=== PATIENT | female | born 1985 | race Two or more races ===

== ENCOUNTER 2018-07-10 07:04 | Emergency (ER) | payer OTHER ==
[~2018-07-10] VITALS: Ht 149.9 cm; Wt 77.4 kg
[2018-07-10] MEDS ORDERED: ONDANSETRON PF 4 MG/2 ML VIAL. IV ONE (07:30)
[2018-07-10] MEDS ORDERED: IV NORMAL SALINE 1,000ML 1,000 ML IV ONE (07:30)
--- NOTE | 2018-07-10 07:36 | PHYS DOC ---
Adult General Chief Complaint Chief Complaint: ABDOMINAL PAIN HPI HPI 33-year-old female presents with epigastric abdominal pain. Patient states that she woke up at midnight with epigastric pain that she describes as deep cramping. She has not had pain like this before, so she was concerned. No association with food. She has some nausea but has not had vomiting. She had 2 bowel movements yesterday and the second one was very loose. She denies fever or chills. She has some left flank tenderness that she noticed on arrival. She denies history of kidney stones. Review of Systems Review of Systems Constitutional: Denies fever or chills [] Eyes: Denies change in visual acuity, redness, or eye pain [] HENT: Denies nasal congestion or sore throat [] Respiratory: Denies cough or shortness of breath [] Cardiovascular: No additional information not addressed in HPI [] GI: Abdominal pain, nausea, diarrhea [] : Denies dysuria or hematuria [] Musculoskeletal: Denies back pain or joint pain [] Integument: Denies rash or skin lesions [] Neurologic: Denies headache, focal weakness or sensory changes [] Endocrine: Denies polyuria or polydipsia [] All other systems were reviewed and found to be within normal limits, except as documented in this note. Current Medications Current Medications Current Medications Medications (Trade) Dose Ordered Sig/Hector Start Time Stop Time Status Last Admin Dose Admin Ondansetron HCl (Zofran) 4 mg 1X ONCE 07/10/18 07:30 07/10/18 07:31 Sodium Chloride 1,000 ml @ 1,000 mls/hr 1X ONCE 07/10/18 07:30 07/10/18 08:29 Allergies Allergies Allergies Coded Allergies Type Severity Reaction Last Updated Verified No Known Drug Allergies 07/10/18 No Physical Exam Physical Exam Constitutional: Well developed, well nourished, no acute distress, non-toxic appearance. [] HENT: Normocephalic, atraumatic, bilateral external ears normal, oropharynx moist, no oral exudates, nose normal. [] Eyes: PERRLA, EOMI, conjunctiva normal, no discharge. [] Neck: Normal range of motion, no tenderness, supple, no stridor. [] Cardiovascular:Heart rate regular rhythm, no murmur [] Lungs & Thorax: Bilateral breath sounds clear to auscultation [] Abdomen: Epigastric tenderness, suprapubic tenderness, no rebound, no guarding.[ ] Skin: Warm, dry, no erythema, no rash. [] Back: No tenderness, no CVA tenderness. [] Extremities: No tenderness, no cyanosis, no clubbing, ROM intact, no edema. [] Neurologic: Alert and oriented X 3, normal motor function, normal sensory function, no focal deficits noted. [] Psychologic: Affect normal, judgement normal, mood normal. [] EKG EKG [] Radiology/Procedures Radiology/Procedures [] Impressions: Preliminary interpretation: Stool burden throughout the colon, scattered radiopaque material in the colon, a pocket of air in the colon at the splenic flexure. No air-fluid levels Course & Med Decision Making Course & Med Decision Making Pertinent Labs and Imaging studies reviewed. (See chart for details) The patient's labs are unremarkable. Her urinalysis is negative for infection. Her KUB shows moderate to severe stool burden in the colon. There is also a scattered radiopaque material which is likely full fragments in the colon. There is a pocket of gas trapped in the colon at the splenic flexure. It is likely the peristalsis pushing against this pressure was causing her pain. I advised the patient to use magnesium citrate to get her bowels moving and it cleaned out. She will go home and do this as directed. She is stable for discharge at this time. [] Dragon Disclaimer Dragon Disclaimer This electronic medical record was generated, in whole or in part, using a voice recognition dictation system. Departure Departure: Referrals: KELSY BARFIELD MD (PCP) EDWARD GIBSON DO Jul 10, 2018 07:36
[2018-07-10 07:47] LABS: BASO # 0.1 x10^3/uL (0.0-0.2); BASO % 1 % (0-3); EOS % 0 % (0-3); HEMATOCRIT 38.6 % (36.0-47.0); HEMOGLOBIN 12.6 g/dL (12.0-15.5); LYMPH # 1.7 x10^3/uL (1.0-4.8); LYMPH % 17 % (24-48); MEAN CORPUSCULAR HEMOGLOBIN 25 pg (25-35); MEAN CORPUSCULAR HGB CONC 33 g/dL (31-37); MEAN CORPUSCULAR VOLUME 77 fL (79-100); MONO # 0.4 x10^3/uL (0.0-1.1); MONO % 4 % (0-9); NEUT # 7.6 x10^3uL (1.8-7.7); NEUT % 78 % (31-73); PLATELET COUNT 321 x10^3/uL (140-400); RED BLOOD COUNT 5.01 x10^6/uL (3.50-5.40); RED CELL DISTRIBUTION WIDTH 14.8 % (11.5-14.5); WHITE BLOOD COUNT 9.8 x10^3/uL (4.0-11.0)
[2018-07-10 07:55] LABS: BACTERIA,URINE FEW /HPF (0-FEW); BILIRUBIN,URINE NEG (NEG); CLARITY,URINE HAZY; COLOR,URINE YELLOW; GLUCOSE,URINE NEG (NEG); NITRITE,URINE NEG (NEG); RBC,URINE 0 /HPF (0-2); SPERM,URINE PRESENT /HPF; SQUAMOUS EPITHELIAL CELL,UR MOD /LPF; UROBILINOGEN,URINE 0.2 mg/dL (0.2 mg/dL); WBC,URINE RARE /HPF (0-4)
[2018-07-10 07:57] LABS: ALBUMIN 3.3 g/dL (3.4-5.0); ALBUMIN/GLOBULIN RATIO 0.8 (1.0-1.7); CALCIUM 9.4 mg/dL (8.5-10.1); CREATININE 0.8 mg/dL (0.6-1.0); GFR 83.1; POTASSIUM 4.2 mmol/L (3.5-5.1); TOTAL BILIRUBIN 0.3 mg/dL (0.2-1.0); TOTAL PROTEIN 7.3 g/dL (6.4-8.2)
[2018-07-10] MEDS ORDERED: KETOROLAC 30 MG/ML VIAL. IV ONE (08:00)
[2018-07-10 08:42] VITALS: BP 101/47
--- NOTE | 2018-07-10 09:20 | RAD ---
EXAM: Abdomen, single view. HISTORY: Left lower quadrant pain. COMPARISON: None. FINDINGS: A frontal view of the abdomen is obtained. There is moderate stool within the colon and rectum. There is radiodense material within the fecal stream. No abnormally dilated loop of bowel seen. There is no transition point to suggest obstruction. IMPRESSION: 1. Moderate stool within the colon and rectum. Correlate for constipation. 2. Nonobstructive bowel gas pattern. Electronically signed by: Vee Hair MD (07/10/2018 9:16 AM) [place] [id number]
== END 2018-07-10 08:42 | disposition home or self-care (01) ==
LOC: ER 07:04
DX: K59.00 Constipation, unspecified (principal); R10.13 Epigastric pain
CPT/HCPCS: 36415; 74018; 80053; 81001; 81025; 83690; 85025; 96361; 96374; 96375; 99285; J1885; J2405; J7030

== ENCOUNTER 2018-11-05 19:00 | Emergency (ER) | payer OTHER ==
[~2018-11-05] VITALS: Ht 149.9 cm; Wt 81.6 kg
[2018-11-05] MEDS: IV NORMAL SALINE 1,000ML 1,000 ML IV ONE (19:27)
[2018-11-05] MEDS: KETOROLAC 30 MG/ML VIAL. IV ONE (19:29)
[2018-11-05] MEDS: ONDANSETRON PF 4 MG/2 ML VIAL. IV ONE (19:29)
[2018-11-05 19:44] LABS: BASO # 0.1 x10^3/uL (0.0-0.2); BASO % 1 % (0-3); EOS # 0.1 x10^3/uL (0.0-0.7); EOS % 1 % (0-3); HEMATOCRIT 40.7 % (36.0-47.0); HEMOGLOBIN 12.9 g/dL (12.0-15.5); LYMPH # 2.1 x10^3/uL (1.0-4.8); LYMPH % 19 % (24-48); MEAN CORPUSCULAR HEMOGLOBIN 25 pg (25-35); MEAN CORPUSCULAR HGB CONC 32 g/dL (31-37); MEAN CORPUSCULAR VOLUME 77 fL (79-100); MONO # 0.5 x10^3/uL (0.0-1.1); MONO % 5 % (0-9); NEUT # 8.1 x10^3uL (1.8-7.7); NEUT % 74 % (31-73); PLATELET COUNT 368 x10^3/uL (140-400); RED BLOOD COUNT 5.25 x10^6/uL (3.50-5.40); RED CELL DISTRIBUTION WIDTH 14.5 % (11.5-14.5); WHITE BLOOD COUNT 10.9 x10^3/uL (4.0-11.0)
[2018-11-05 19:51] LABS: ALBUMIN 3.7 g/dL (3.4-5.0); ALBUMIN/GLOBULIN RATIO 0.9 (1.0-1.7); CALCIUM 8.9 mg/dL (8.5-10.1); CREATININE 0.9 mg/dL (0.6-1.0); GFR 72.6; POTASSIUM 3.4 mmol/L (3.5-5.1); TOTAL BILIRUBIN 0.3 mg/dL (0.2-1.0)
--- NOTE | 2018-11-05 19:56 | PHYS DOC ---
Past History Past Medical History: No Pertinent History Past Surgical History: Alcohol Use: None Drug Use: None Adult General Chief Complaint Chief Complaint: ABDOMINAL PAIN HPI HPI 33-year-old female presents with epigastric abdominal pain that started 40 minutes prior to arrival. The patient was having dinner which included rice, beans, and chicken. A little while after eating, she began to have this sharp pain in the epigastric area. At its worse it was 10 out of 10. The patient has not had pain like this before. She does get intermittent heartburn but Zantac usually resolves it. She tried to Zantac without relief. She denies vomiting but has had nausea. She has noticed a pattern of abdominal pain on occasion after eating but it is much less severe and she believed it was GERD. She denies fever or chills. She does not drink alcohol in the bases Review of Systems Review of Systems Constitutional: Denies fever or chills [] Eyes: Denies change in visual acuity, redness, or eye pain [] HENT: Denies nasal congestion or sore throat [] Respiratory: Denies cough or shortness of breath [] Cardiovascular: No additional information not addressed in HPI [] GI: Abdominal pain, nausea. Denies vomiting, bloody stools or diarrhea [] : Denies dysuria or hematuria [] Musculoskeletal: Denies back pain or joint pain [] Integument: Denies rash or skin lesions [] Neurologic: Denies headache, focal weakness or sensory changes [] Endocrine: Denies polyuria or polydipsia [] All other systems were reviewed and found to be within normal limits, except as documented in this note. Current Medications Current Medications Current Medications Medications (Trade) Dose Ordered Sig/Hector Start Time Stop Time Status Last Admin Dose Admin Ketorolac Tromethamine (Toradol 30mg Vial) 30 mg 1X ONCE 11/05/18 19:30 11/05/18 19:31 DC 11/05/18 19:29 30 MG Ondansetron HCl (Zofran) 4 mg 1X ONCE 11/05/18 19:30 11/05/18 19:31 DC 11/05/18 19:29 4 MG Sodium Chloride 1,000 ml @ 1,000 mls/hr 1X ONCE 11/05/18 19:30 11/05/18 20:29 11/05/18 19:27 1,000 MLS/HR Allergies Allergies Allergies Coded Allergies Type Severity Reaction Last Updated Verified No Known Drug Allergies 07/10/18 No Physical Exam Physical Exam Constitutional: Well developed, well nourished, no acute distress, non-toxic appearance. [] HENT: Normocephalic, atraumatic, bilateral external ears normal, oropharynx moist, no oral exudates, nose normal. [] Eyes: PERRLA, EOMI, conjunctiva normal, no discharge. [] Neck: Normal range of motion, no tenderness, supple, no stridor. [] Cardiovascular:Heart rate regular rhythm, no murmur [] Lungs & Thorax: Bilateral breath sounds clear to auscultation [] Abdomen: epigastric abdominal pain with palpation. [] Skin: Warm, dry, no erythema, no rash. [] Back: No tenderness, no CVA tenderness. [] Extremities: No tenderness, no cyanosis, no clubbing, ROM intact, no edema. [] Neurologic: Alert and oriented X 3, normal motor function, normal sensory function, no focal deficits noted. [] Psychologic: Affect normal, judgement normal, mood normal. [] Current Patient Data Vital Signs Vital Signs Date Time Temp Pulse Resp B/P (MAP) Pulse Ox O2 Delivery O2 Flow Rate FiO2 11/05/18 19:08 97.8 73 20 100 Room Air Lab Results Laboratory Tests Test 11/05/18 19:22 White Blood Count 10.9 x10^3/uL (4.0-11.0) Red Blood Count 5.25 x10^6/uL (3.50-5.40) Hemoglobin 12.9 g/dL (12.0-15.5) Hematocrit 40.7 % (36.0-47.0) Mean Corpuscular Volume 77 fL (79-100) L Mean Corpuscular Hemoglobin 25 pg (25-35) Mean Corpuscular Hemoglobin Concent 32 g/dL (31-37) Red Cell Distribution Width 14.5 % (11.5-14.5) Platelet Count 368 x10^3/uL (140-400) Neutrophils (%) (Auto) 74 % (31-73) H Lymphocytes (%) (Auto) 19 % (24-48) L Monocytes (%) (Auto) 5 % (0-9) Eosinophils (%) (Auto) 1 % (0-3) Basophils (%) (Auto) 1 % (0-3) Neutrophils # (Auto) 8.1 x10^3uL (1.8-7.7) H Lymphocytes # (Auto) 2.1 x10^3/uL (1.0-4.8) Monocytes # (Auto) 0.5 x10^3/uL (0.0-1.1) Eosinophils # (Auto) 0.1 x10^3/uL (0.0-0.7) Basophils # (Auto) 0.1 x10^3/uL (0.0-0.2) Sodium Level 140 mmol/L (136-145) Potassium Level 3.4 mmol/L (3.5-5.1) L Chloride Level 100 mmol/L (98-107) Carbon Dioxide Level 30 mmol/L (21-32) Anion Gap 10 (6-14) Blood Urea Nitrogen 14 mg/dL (7-20) Creatinine 0.9 mg/dL (0.6-1.0) Estimated GFR (Cockcroft-Gault) 72.6 BUN/Creatinine Ratio 16 (6-20) Glucose Level 108 mg/dL (70-99) H Calcium Level 8.9 mg/dL (8.5-10.1) Total Bilirubin 0.3 mg/dL (0.2-1.0) Aspartate Amino Transferase (AST) 19 U/L (15-37) Alanine Aminotransferase (ALT) 33 U/L (14-59) Alkaline Phosphatase 75 U/L (46-116) Total Protein 8.0 g/dL (6.4-8.2) Albumin 3.7 g/dL (3.4-5.0) Albumin/Globulin Ratio 0.9 (1.0-1.7) L Lipase 261 U/L (73-393) EKG EKG [] Radiology/Procedures Radiology/Procedures [] Course & Med Decision Making Course & Med Decision Making Pertinent Labs and Imaging studies reviewed. (See chart for details) The patient's labs are unremarkable. Her urinalysis is unremarkable. Her symptoms are suspicious for gallbladder disease. This is not an acute situation however. I have advised that she keep a food diary when this pain happens to look for patterns. If she continues to have difficulty, she will work with her primary care physician for gallbladder workup. She is feeling better at this time. She is stable for discharge. [] Dragon Disclaimer Dragon Disclaimer This electronic medical record was generated, in whole or in part, using a voice recognition dictation system. Departure Departure: Impression: Primary Impression: Epigastric abdominal pain Disposition: HOME, SELF-CARE Condition: STABLE Referrals: KELSY BARFIELD MD (PCP) Patient Instructions: Abdominal Pain, Women EDWARD GIBSON DO Nov 05, 2018 19:56
[2018-11-05 20:17] LABS: BILIRUBIN,URINE NEG (NEG); CLARITY,URINE HAZY; COLOR,URINE YELLOW; GLUCOSE,URINE NEG (NEG)
[2018-11-05 20:18] LABS: BACTERIA,URINE FEW /HPF (0-FEW); NITRITE,URINE NEG (NEG); SQUAMOUS EPITHELIAL CELL,UR MOD /LPF; UROBILINOGEN,URINE 1 mg/dL (0.2 mg/dL); WBC,URINE OCC /HPF (0-4)
[2018-11-05 20:30] VITALS: BP 116/50
== END 2018-11-05 20:46 | disposition home or self-care (01) ==
LOC: ER 19:00
DX: R10.13 Epigastric pain (principal); Z98.890 Other specified postprocedural states
CPT/HCPCS: 36415; 80053; 81001; 83690; 85025; 96374; 96375; 99283; J1885; J2405; J7030

== ENCOUNTER 2019-02-02 04:53 | Emergency (ER) | payer BC, OTHER ==
[~2019-02-02] VITALS: Ht 149.9 cm; Wt 81.2 kg
--- NOTE | 2019-02-02 04:56 | ED.ADGEN ---
Past History Past Medical History: No Pertinent History (DON BYERS MD) Past Surgical History: (DON BYERS MD) Alcohol Use: None Drug Use: None (DON BYERS MD) Adult General Chief Complaint Chief Complaint ".. I got this really bad abdomen pain.. here in pit of chest.. my stomach.. it about 06/19.. it woke me up from sleep.. it is nataliya like the pain I had back in October... " (DON BYERS MD) [facility] HPI Patient is a 28 year old female who presents with above hx and complaints abd. pain 06/19. Pain is localized to the epigastric and right upper quadrant. Patient doesn't currently have some dull discomfort in right shoulder blade area. Pain is similar to pain she had in October of this past year. Patient has had this pain periodically after high-fat meals. Patient did have massive dictated and Q steak at [employer] approximately 21:30 last night. Patient denies any history of tarry stools. Patient has been told in the past that she possibly has biliary colic and was too get out patient follow-up. Patient has not followed up with her primary Carole Barfield . She denies any trauma. Patient denies any travel. Patient denies any immunosuppression. Patient denies any intake of questionable foods. Patient is on city water. No history of specific ill contact. She has had previous abdomen surgery a . She does not smoke. Patient denies illicit drug use. Patient denies any vaginal discharge. (DON BYERS MD) Review of Systems Review of Systems Constitutional: Denies fever or chills [] Eyes: Denies change in visual acuity, redness, or eye pain [] HENT: Denies nasal congestion or sore throat [] Respiratory: Denies cough or shortness of breath [] Cardiovascular: No additional information not addressed in HPI [] GI: Complains of a right upper quadrant and epigastric abdominal pain, nausea,. Denies vomiting, bloody stools or diarrhea [] : Denies dysuria or hematuria [] Musculoskeletal: Denies back pain or joint pain [] Integument: Denies rash or skin lesions [] Neurologic: Denies headache, focal weakness or sensory changes [] Endocrine: Denies polyuria or polydipsia [] All other systems were reviewed and found to be within normal limits, except as documented in this note. (DON BYERS MD) Family History Family History Gallstones (DON BYERS MD) Current Medications Current Medications Current Medications Medications (Trade) Dose Ordered Sig/Hector Start Time Stop Time Status Last Admin Dose Admin Acetaminophen (Tylenol) 1,000 mg 1X ONCE 02/02/19 05:30 02/02/19 05:31 DC 02/02/19 05:19 1,000 MG Famotidine (Pepcid Vial) 20 mg 1X ONCE 02/02/19 05:30 02/02/19 05:31 DC 02/02/19 05:16 20 MG Iohexol (Omnipaque 240 Mg/ml) 30 ml 1X ONCE 02/02/19 08:00 02/02/19 08:01 DC 02/02/19 07:56 30 ML Iohexol (Omnipaque 300 Mg/ml) 75 ml 1X ONCE 02/02/19 08:00 02/02/19 08:01 DC 02/02/19 07:56 75 ML Lactated Ringer's 1,000 ml @ 1,000 mls/hr Q1H 02/02/19 05:30 02/02/19 07:51 DC 02/02/19 05:16 1,000 MLS/HR Magnesium Hydroxide (Milk Of Magnesia) 2,400 mg 1X ONCE 02/02/19 05:30 02/02/19 05:31 DC 02/02/19 05:18 2,400 MG Ondansetron HCl (Zofran) 8 mg 1X ONCE 02/02/19 05:30 02/02/19 05:31 DC 02/02/19 05:17 8 MG (SUBHASH BONE MD) Current Medications See nursing for home medications (DON BYERS MD) Allergies Allergies Allergies Coded Allergies Type Severity Reaction Last Updated Verified No Known Drug Allergies 07/10/18 No (SUBHASH BONE MD) Physical Exam Physical Exam Constitutional: in acute distress, non-toxic appearance. [] HENT: Normocephalic, atraumatic, bilateral external ears normal, oropharynx moist, no oral exudates, nose normal. [] Eyes: PERRLA, EOMI, conjunctiva normal, no discharge. [] Neck: Normal range of motion, no tenderness, supple, no stridor. [] Cardiovascular:Heart rate regular rhythm, no murmur [] Lungs & Thorax: Bilateral breath sounds equal apex auscultation [] Abdomen: Bowel sounds normal, soft, right upper quadrant and epigastric tenderness, rebound to Rt. upper quadrant, no masses, no pulsatile masses. [] Old scar. Patient declines rectal or pelvic exam at this time. Skin: Warm, dry, no erythema, no rash. [] Back: No tenderness, no CVA tenderness. [] Extremities: No tenderness, no cyanosis, no clubbing, ROM intact, no edema. [] No psoas sign. Neurologic: Alert and oriented X 3, normal motor function, normal sensory function, no focal deficits noted. [] Psychologic: Affect anxious, judgement normal, mood normal. [] (DON BYERS MD) Current Patient Data Vital Signs Vital Signs Date Time Temp Pulse Resp B/P (MAP) Pulse Ox O2 Delivery O2 Flow Rate FiO2 02/02/19 07:10 70 16 102/64 (77) 97 Room Air 02/02/19 04:53 97.7 (SUBHASH BONE MD) Lab Results Laboratory Tests Test 02/02/19 05:00 02/02/19 05:07 02/02/19 05:15 02/02/19 05:39 Urine Collection Type Unknown Urine Color Yellow Urine Clarity Clear Urine pH 6.5 Urine Specific Clarissa >=1.030 Urine Protein Neg (NEG-TRACE) Urine Glucose (UA) Neg mg/dL (NEG) Urine Ketones (Stick) Neg mg/dL (NEG) Urine Blood Small (NEG) Urine Nitrite Neg (NEG) Urine Bilirubin Neg (NEG) Urine Urobilinogen Dipstick 1 mg/dL (0.2 mg/dL) Urine Leukocyte Esterase Neg (NEG) Urine RBC Rare /HPF (0-2) Urine WBC 1-4 /HPF (0-4) Urine Squamous Epithelial Cells Mod /LPF Urine Bacteria Mod /HPF (0-FEW) Urine Mucus Marked /LPF Urine Opiates Screen Neg (NEG) Urine Methadone Screen Neg (NEG) Urine Barbiturates Neg (NEG) Urine Phencyclidine Screen Neg (NEG) Urine Amphetamine/Methamphetamine Neg (NEG) Urine Benzodiazepines Screen Neg (NEG) Urine Cocaine Screen Neg (NEG) Urine Cannabinoids Screen Neg (NEG) Urine Ethyl Alcohol Neg (NEG) White Blood Count 10.6 x10^3/uL (4.0-11.0) Red Blood Count 5.07 x10^6/uL (3.50-5.40) Hemoglobin 12.7 g/dL (12.0-15.5) Hematocrit 39.2 % (36.0-47.0) Mean Corpuscular Volume 77 fL (79-100) L Mean Corpuscular Hemoglobin 25 pg (25-35) Mean Corpuscular Hemoglobin Concent 33 g/dL (31-37) Red Cell Distribution Width 14.5 % (11.5-14.5) Platelet Count 320 x10^3/uL (140-400) Neutrophils (%) (Auto) 76 % (31-73) H Lymphocytes (%) (Auto) 17 % (24-48) L Monocytes (%) (Auto) 6 % (0-9) Eosinophils (%) (Auto) 1 % (0-3) Basophils (%) (Auto) 0 % (0-3) Neutrophils # (Auto) 8.0 x10^3uL (1.8-7.7) H Lymphocytes # (Auto) 1.8 x10^3/uL (1.0-4.8) Monocytes # (Auto) 0.6 x10^3/uL (0.0-1.1) Eosinophils # (Auto) 0.1 x10^3/uL (0.0-0.7) Basophils # (Auto) 0.0 x10^3/uL (0.0-0.2) Sodium Level 141 mmol/L (136-145) Potassium Level 3.6 mmol/L (3.5-5.1) Chloride Level 103 mmol/L (98-107) Carbon Dioxide Level 27 mmol/L (21-32) Anion Gap 11 (6-14) Blood Urea Nitrogen 13 mg/dL (7-20) Creatinine 0.9 mg/dL (0.6-1.0) Estimated GFR (Cockcroft-Gault) 72.6 Glucose Level 121 mg/dL (70-99) H Calcium Level 8.9 mg/dL (8.5-10.1) Total Bilirubin 0.3 mg/dL (0.2-1.0) Direct Bilirubin 0.1 mg/dL (0.0-0.2) Aspartate Amino Transferase (AST) 28 U/L (15-37) Alanine Aminotransferase (ALT) 42 U/L (14-59) Alkaline Phosphatase 69 U/L (46-116) Creatine Kinase 116 U/L (26-192) Troponin I Quantitative < 0.017 ng/mL (0-0.055) Total Protein 7.4 g/dL (6.4-8.2) Albumin 3.6 g/dL (3.4-5.0) Amylase Level 45 U/L (25-115) Lipase 154 U/L (73-393) POC Urine HCG, Qualitative hcg negative (Negative) Prothrombin Time 12.4 SEC (9.4-11.4) H Prothrombin Time INR 1.3 (0.9-1.1) H PTT 26 SEC (23-33) (SUBHASH BONE MD) Lab Results Laboratory Tests Test 02/02/19 05:00 02/02/19 05:07 02/02/19 05:15 02/02/19 05:39 Urine Collection Type Unknown Urine Color Yellow Urine Clarity Clear Urine pH 6.5 Urine Specific Clarissa >=1.030 Urine Protein Neg (NEG-TRACE) Urine Glucose (UA) Neg mg/dL (NEG) Urine Ketones (Stick) Neg mg/dL (NEG) Urine Blood Small (NEG) Urine Nitrite Neg (NEG) Urine Bilirubin Neg (NEG) Urine Urobilinogen Dipstick 1 mg/dL (0.2 mg/dL) Urine Leukocyte Esterase Neg (NEG) Urine RBC Rare /HPF (0-2) Urine WBC 1-4 /HPF (0-4) Urine Squamous Epithelial Cells Mod /LPF Urine Bacteria Mod /HPF (0-FEW) Urine Mucus Marked /LPF Urine Opiates Screen Neg (NEG) Urine Methadone Screen Neg (NEG) Urine Barbiturates Neg (NEG) Urine Phencyclidine Screen Neg (NEG) Urine Amphetamine/Methamphetamine Neg (NEG) Urine Benzodiazepines Screen Neg (NEG) Urine Cocaine Screen Neg (NEG) Urine Cannabinoids Screen Neg (NEG) Urine Ethyl Alcohol Neg (NEG) White Blood Count 10.6 x10^3/uL (4.0-11.0) Red Blood Count 5.07 x10^6/uL (3.50-5.40) Hemoglobin 12.7 g/dL (12.0-15.5) Hematocrit 39.2 % (36.0-47.0) Mean Corpuscular Volume 77 fL (79-100) L Mean Corpuscular Hemoglobin 25 pg (25-35) Mean Corpuscular Hemoglobin Concent 33 g/dL (31-37) Red Cell Distribution Width 14.5 % (11.5-14.5) Platelet Count 320 x10^3/uL (140-400) Neutrophils (%) (Auto) 76 % (31-73) H Lymphocytes (%) (Auto) 17 % (24-48) L Monocytes (%) (Auto) 6 % (0-9) Eosinophils (%) (Auto) 1 % (0-3) Basophils (%) (Auto) 0 % (0-3) Neutrophils # (Auto) 8.0 x10^3uL (1.8-7.7) H Lymphocytes # (Auto) 1.8 x10^3/uL (1.0-4.8) Monocytes # (Auto) 0.6 x10^3/uL (0.0-1.1) Eosinophils # (Auto) 0.1 x10^3/uL (0.0-0.7) Basophils # (Auto) 0.0 x10^3/uL (0.0-0.2) Sodium Level 141 mmol/L (136-145) Potassium Level 3.6 mmol/L (3.5-5.1) Chloride Level 103 mmol/L (98-107) Carbon Dioxide Level 27 mmol/L (21-32) Anion Gap 11 (6-14) Blood Urea Nitrogen 13 mg/dL (7-20) Creatinine 0.9 mg/dL (0.6-1.0) Estimated GFR (Cockcroft-Gault) 72.6 Glucose Level 121 mg/dL (70-99) H Calcium Level 8.9 mg/dL (8.5-10.1) Total Bilirubin 0.3 mg/dL (0.2-1.0) Direct Bilirubin 0.1 mg/dL (0.0-0.2) Aspartate Amino Transferase (AST) 28 U/L (15-37) Alanine Aminotransferase (ALT) 42 U/L (14-59) Alkaline Phosphatase 69 U/L (46-116) Creatine Kinase 116 U/L (26-192) Troponin I Quantitative < 0.017 ng/mL (0-0.055) Total Protein 7.4 g/dL (6.4-8.2) Albumin 3.6 g/dL (3.4-5.0) Triglycerides Level 81 mg/dL (0-150) Cholesterol Level 137 mg/dL (0-200) LDL Cholesterol, Calculated 80 mg/dL (0-100) VLDL Cholesterol, Calculated 16 mg/dL (0-40) Non-HDL Cholesterol Calculated 96 mg/dL (0-129) HDL Cholesterol 41 mg/dL (40-60) Cholesterol/HDL Ratio 3.0 Amylase Level 45 U/L (25-115) Lipase 154 U/L (73-393) POC Urine HCG, Qualitative hcg negative (Negative) Prothrombin Time 12.4 SEC (9.4-11.4) H Prothrombin Time INR 1.3 (0.9-1.1) H PTT 26 SEC (23-33) (DON BYERS MD) EKG EKG [] (DON BYERS MD) EKG Ordered and reviewed by Dr. Byers at [address] Bone at 0645: Heart rate 70, sinus rhythm, leftward axis, no acute ST/T-wave abnormalities present (SUBHASH BONE MD) Radiology/Procedures Radiology/Procedures [] (DON BYERS MD) Radiology/[place] [address] IMAGING REPORT Signed PATIENT: RODRIGO ASTORGA ACCOUNT: [id number] : 1985 LOCATION: ER AGE: 33 SEX: F EXAM STATUS: REG ER ORD. PHYSICIAN: DON BYERS MD REASON: abdomen pain PROCEDURE: CT ABD PELV W/ORAL&IV CONTRAST Examination: CT ABD PELV W/ORAL IV CONTRAST History: EPIGASTRIC ABDOMINAL PAIN WITH NAUSEA. ORAL AND 75MLS OMNI 300 IV CONTRAST Comparison/Correlation: None Findings: Axial images of the abdomen and pelvis were obtained following IV contrast. Sagittal and coronal reformatted images were provided. Oral contrast was administered. Visualized lung bases are clear. Liver, spleen, pancreas, adrenal glands, and kidneys are normal. A calculus within the gallbladder measuring up to 2 cm diameter noted. Smaller calculus at the gallbladder neck measuring 0.6 cm diameter also appears to be present. No biliary dilatation. No surrounding inflammatory findings. Appendix is normal. No extraluminal gas. No obstruction. Intrauterine device is present. Small left adnexal follicle is physiologic in appearance. No ascites or pelvic free fluid. No enlarged abdominal or pelvic lymph nodes. Small umbilical hernia containing omental fat. Bone island involving L3 is present at the vertebral body. Bilateral sacroiliac joint sclerosis primarily involving the iliac bones noted. Impression: Cholelithiasis. No acute inflammatory findings or biliary dilatation. Bilateral sacroiliitis. PQRS Compliance Statement: One or more of the following individualized dose reduction techniques were utilized for this examination: 1. Automated exposure control 2. Adjustment of the mA and/or kV according to patient size 3. Use of iterative reconstruction technique Electronically signed by: Ivett Hurtado MD (02/02/2019 7:51 AM) [facility] DICTATED AND SIGNED BY: IVETT HURTADO MD DATE: 02/02/19 0751 CC: DON BYERS MD; KELSY BARFIELD MD ~ (SUBHASH BONE MD) Course & Med Decision Making Course & Med Decision Making Pertinent Labs and Imaging studies reviewed. (See chart for details) [] (DON BYERS MD) Course & Med Decision Making Addendum by Dr. Subhash Bone at 0825: I took over care of patient at [address] Byers. I followed up at the patient's lab work and imaging studies. Imaging studies reveal evidence of cholelithiasis without evidence of cholecystitis. Reevaluation of the patient shows that she is pain-free at this time. Symptoms appear consistent with biliary colic. Informed patient of cause for symptoms. Recommended that the patient decrease fat intake in diet and patient will be referred to follow-up with Dr. Downing of Gen. surgery in the next 5-7 days for reevaluation and likely scheduling of outpatient cholecystectomy. Recommended that patient return to the emergency department for any worsening symptoms. Prescribed Odon to take as needed for biliary colic. Patient voiced understanding and in agreement with treatment plan. (SUBHASH BONE MD) Final Impression Final Impression 1. Abdomen Pain[] 2. Biliary colic (DON BYERS MD) Final Impression Biliary colic (SUBHASH BONE MD) Dragon Disclaimer Dragon Disclaimer This electronic medical record was generated, in whole or in part, using a voice recognition dictation system. (DON BYERS MD) Discharge Summary Visit Information Final Diagnosis Problems Medical Problems: (1) Biliary colic Status: Acute (DON BYERS MD) Brief Hospital Course Allergies Allergies Coded Allergies Type Severity Reaction Last Updated Verified No Known Drug Allergies 07/10/18 No (DON BYERS MD) Vital Signs Vital Signs Date Time Temp Pulse Resp B/P (MAP) Pulse Ox O2 Delivery O2 Flow Rate FiO2 02/02/19 08:20 68 16 104/56 (72) 98 Room Air 02/02/19 04:53 97.7 (DON BYERS MD) Lab Results Laboratory Tests Test 02/02/19 05:00 02/02/19 05:07 02/02/19 05:15 02/02/19 05:39 Urine Collection Type Unknown Urine Color Yellow Urine Clarity Clear Urine pH 6.5 Urine Specific Clarissa >=1.030 Urine Protein Neg (NEG-TRACE) Urine Glucose (UA) Neg mg/dL (NEG) Urine Ketones (Stick) Neg mg/dL (NEG) Urine Blood Small (NEG) Urine Nitrite Neg (NEG) Urine Bilirubin Neg (NEG) Urine Urobilinogen Dipstick 1 mg/dL (0.2 mg/dL) Urine Leukocyte Esterase Neg (NEG) Urine RBC Rare /HPF (0-2) Urine WBC 1-4 /HPF (0-4) Urine Squamous Epithelial Cells Mod /LPF Urine Bacteria Mod /HPF (0-FEW) Urine Mucus Marked /LPF Urine Opiates Screen Neg (NEG) Urine Methadone Screen Neg (NEG) Urine Barbiturates Neg (NEG) Urine Phencyclidine Screen Neg (NEG) Urine Amphetamine/Methamphetamine Neg (NEG) Urine Benzodiazepines Screen Neg (NEG) Urine Cocaine Screen Neg (NEG) Urine Cannabinoids Screen Neg (NEG) Urine Ethyl Alcohol Neg (NEG) White Blood Count 10.6 x10^3/uL (4.0-11.0) Red Blood Count 5.07 x10^6/uL (3.50-5.40) Hemoglobin 12.7 g/dL (12.0-15.5) Hematocrit 39.2 % (36.0-47.0) Mean Corpuscular Volume 77 fL (79-100) Mean Corpuscular Hemoglobin 25 pg (25-35) Mean Corpuscular Hemoglobin Concent 33 g/dL (31-37) Red Cell Distribution Width 14.5 % (11.5-14.5) Platelet Count 320 x10^3/uL (140-400) Neutrophils (%) (Auto) 76 % (31-73) Lymphocytes (%) (Auto) 17 % (24-48) Monocytes (%) (Auto) 6 % (0-9) Eosinophils (%) (Auto) 1 % (0-3) Basophils (%) (Auto) 0 % (0-3) Neutrophils # (Auto) 8.0 x10^3uL (1.8-7.7) Lymphocytes # (Auto) 1.8 x10^3/uL (1.0-4.8) Monocytes # (Auto) 0.6 x10^3/uL (0.0-1.1) Eosinophils # (Auto) 0.1 x10^3/uL (0.0-0.7) Basophils # (Auto) 0.0 x10^3/uL (0.0-0.2) Sodium Level 141 mmol/L (136-145) Potassium Level 3.6 mmol/L (3.5-5.1) Chloride Level 103 mmol/L (98-107) Carbon Dioxide Level 27 mmol/L (21-32) Anion Gap 11 (6-14) Blood Urea Nitrogen 13 mg/dL (7-20) Creatinine 0.9 mg/dL (0.6-1.0) Estimated GFR (Cockcroft-Gault) 72.6 Glucose Level 121 mg/dL (70-99) Calcium Level 8.9 mg/dL (8.5-10.1) Total Bilirubin 0.3 mg/dL (0.2-1.0) Direct Bilirubin 0.1 mg/dL (0.0-0.2) Aspartate Amino Transf (AST/SGOT) 28 U/L (15-37) Alanine Aminotransferase (ALT/SGPT) 42 U/L (14-59) Alkaline Phosphatase 69 U/L (46-116) Creatine Kinase 116 U/L (26-192) Troponin I Quantitative < 0.017 ng/mL (0-0.055) Total Protein 7.4 g/dL (6.4-8.2) Albumin 3.6 g/dL (3.4-5.0) Triglycerides Level 81 mg/dL (0-150) Cholesterol Level 137 mg/dL (0-200) LDL Cholesterol, Calculated 80 mg/dL (0-100) VLDL Cholesterol, Calculated 16 mg/dL (0-40) Non-HDL Cholesterol Calculated 96 mg/dL (0-129) HDL Cholesterol 41 mg/dL (40-60) Cholesterol/HDL Ratio 3.0 Amylase Level 45 U/L (25-115) Lipase 154 U/L (73-393) Bedside Urine HCG, Qualitative hcg negative (Negative) Prothrombin Time 12.4 SEC (9.4-11.4) Prothromb Time International Ratio 1.3 (0.9-1.1) Activated Partial Thromboplast Time 26 SEC (23-33) (DON BYERS MD) Brief Hospital Course 5Ms. Brenna is a 33 old female who presented with abd. pain and suspect biliary colic. Follow up with Dr. Downing group. (DON BYERS MD) Discharge Information Condition at Discharge: Improved, Stable Disposition/Orders: D/C to Home (DON BYERS MD) Dischare Medications Current Medications Lactated Ringer's 1,000 ml @ 1,000 mls/hr Q1H IV Last administered on 02/02/19at 05:16; Admin Dose 1,000 MLS/HR; Start 02/02/19 at 05:30; Stop 02/02/19 at 07:51; Status DC Ondansetron HCl (Zofran) 8 mg 1X ONCE IV Last administered on 02/02/19at 05:17; Admin Dose 8 MG; Start 02/02/19 at 05:30; Stop 02/02/19 at 05:31; Status DC Famotidine (Pepcid Vial) 20 mg 1X ONCE IVP Last administered on 02/02/19at 05:16; Admin Dose 20 MG; Start 02/02/19 at 05:30; Stop 02/02/19 at 05:31; Status DC Magnesium Hydroxide (Milk Of Magnesia) 2,400 mg 1X ONCE PO Last administered on 02/02/19at 05:18; Admin Dose 2,400 MG; Start 02/02/19 at 05:30; Stop 02/02/19 at 05:31; Status DC Acetaminophen (Tylenol) 1,000 mg 1X ONCE PO Last administered on 02/02/19at 05:19; Admin Dose 1,000 MG; Start 02/02/19 at 05:30; Stop 02/02/19 at 05:31; Status DC Iohexol (Omnipaque 300 Mg/ml) 75 ml 1X ONCE IV Last administered on 02/02/19at 07:56; Admin Dose 75 ML; Start 02/02/19 at 08:00; Stop 02/02/19 at 08:01; Status DC Iohexol (Omnipaque 240 Mg/ml) 30 ml 1X ONCE PO Last administered on 02/02/19at 07:56; Admin Dose 30 ML; Start 02/02/19 at 08:00; Stop 02/02/19 at 08:01; Status DC Active Scripts Active Odon 5-325 Tablet (Hydrocodone Bit/Acetaminophen) 1 Each Tablet 1-2 Tab PO Q4- 6HRS PRN (DON BYERS MD) Dragon Disclaimer This chart was dictated in whole or in part using Voice Recognition software in a busy, high-work load, and often noisy Emergency Department environment. It may contain unintended and wholly unrecognized errors or omissions. (DON BYERS MD) DON BYERS MD Feb 02, 2019 04:55 SUBHASH BONE MD Feb 02, 2019 08:28
[2019-02-02] MEDS ORDERED: FAMOTIDINE 20 MG/2 ML VIAL IVP ONE (05:30)
[2019-02-02] MEDS ORDERED: ONDANSETRON PF 4 MG/2 ML VIAL. IV ONE (05:30)
[2019-02-02] MEDS ORDERED: MAGNESIUM HYDROXIDE 2,400 MG/30 ML ORAL.SUSP. PO ONE (05:30)
[2019-02-02] MEDS ORDERED: IV RINGERS SOLUTION,LACTATED 1,000 ML IV SCH (05:30)
[2019-02-02] MEDS ORDERED: ACETAMINOPHEN 500 MG TABLET PO ONE (05:30)
[2019-02-02 05:43] LABS: BASO % 0 % (0-3); EOS # 0.1 x10^3/uL (0.0-0.7); EOS % 1 % (0-3); HEMATOCRIT 39.2 % (36.0-47.0); HEMOGLOBIN 12.7 g/dL (12.0-15.5); LYMPH # 1.8 x10^3/uL (1.0-4.8); LYMPH % 17 % (24-48); MEAN CORPUSCULAR HEMOGLOBIN 25 pg (25-35); MEAN CORPUSCULAR HGB CONC 33 g/dL (31-37); MEAN CORPUSCULAR VOLUME 77 fL (79-100); MONO # 0.6 x10^3/uL (0.0-1.1); MONO % 6 % (0-9); NEUT % 76 % (31-73); PLATELET COUNT 320 x10^3/uL (140-400); RED BLOOD COUNT 5.07 x10^6/uL (3.50-5.40); RED CELL DISTRIBUTION WIDTH 14.5 % (11.5-14.5); WHITE BLOOD COUNT 10.6 x10^3/uL (4.0-11.0)
[2019-02-02 06:05] LABS: ALBUMIN 3.6 g/dL (3.4-5.0); CALCIUM 8.9 mg/dL (8.5-10.1); CREATININE 0.9 mg/dL (0.6-1.0); DIRECT BILIRUBIN 0.1 mg/dL (0.0-0.2); GFR 72.6; POTASSIUM 3.6 mmol/L (3.5-5.1); TOTAL BILIRUBIN 0.3 mg/dL (0.2-1.0); TOTAL PROTEIN 7.4 g/dL (6.4-8.2)
[2019-02-02 06:09] LABS: BARBITURATES NEG (NEG); BENZODIAZEPINES NEG (NEG); BILIRUBIN,URINE NEG (NEG); CANNABINOIDS NEG (NEG); CLARITY,URINE CLEAR; COCAINE NEG (NEG); COLOR,URINE YELLOW; GLUCOSE,URINE NEG (NEG); METHADONE NEG (NEG); OPIATES NEG (NEG); PHENCYCLIDINE NEG (NEG)
[2019-02-02 06:10] LABS: BACTERIA,URINE MOD /HPF (0-FEW); NITRITE,URINE NEG (NEG); RBC,URINE RARE /HPF (0-2); SQUAMOUS EPITHELIAL CELL,UR MOD /LPF; UROBILINOGEN,URINE 1 mg/dL (0.2 mg/dL)
[2019-02-02 06:14] LABS: AMPHETAMINE/METHAMPHETAMINE NEG (NEG)
--- NOTE | 2019-02-02 07:54 | RAD ---
Examination: CT ABD PELV W/ORAL IV CONTRAST History: EPIGASTRIC ABDOMINAL PAIN WITH NAUSEA. ORAL AND 75MLS OMNI 300 IV CONTRAST Comparison/Correlation: None Findings: Axial images of the abdomen and pelvis were obtained following IV contrast. Sagittal and coronal reformatted images were provided. Oral contrast was administered. Visualized lung bases are clear. Liver, spleen, pancreas, adrenal glands, and kidneys are normal. A calculus within the gallbladder measuring up to 2 cm diameter noted. Smaller calculus at the gallbladder neck measuring 0.6 cm diameter also appears to be present. No biliary dilatation. No surrounding inflammatory findings. Appendix is normal. No extraluminal gas. No obstruction. Intrauterine device is present. Small left adnexal follicle is physiologic in appearance. No ascites or pelvic free fluid. No enlarged abdominal or pelvic lymph nodes. Small umbilical hernia containing omental fat. Bone island involving L3 is present at the vertebral body. Bilateral sacroiliac joint sclerosis primarily involving the iliac bones noted. Impression: Cholelithiasis. No acute inflammatory findings or biliary dilatation. Bilateral sacroiliitis. PQRS Compliance Statement: One or more of the following individualized dose reduction techniques were utilized for this examination: 1. Automated exposure control 2. Adjustment of the mA and/or kV according to patient size 3. Use of iterative reconstruction technique Electronically signed by: Humberto Viera MD (02/02/2019 7:51 AM) [facility]
[2019-02-02] MEDS ORDERED: IOHEXOL 300 MG/ML 75 ML VIAL. IV ONE (08:00)
[2019-02-02] MEDS ORDERED: IOHEXOL 240 MG/ML 50ML VIAL. PO ONE (08:00)
[2019-02-02 08:20] VITALS: BP 104/56
[2019-02-02] MEDS ORDERED: HYDR-3165 PO (08:30)
--- NOTE | 2019-02-03 16:57 | EKG ---
[address] [address] Test Date: 2019-02-02 Test Time: 05:13:53 Pat Name: RODRIGO ASTORGADepartment: Room: Gender: F Housekeeping Aide: MILAGROS : 1985 Requested By: DON HILL Order Number: [id number] Reading MD: Eliazar Luna Measurements Intervals [place] Rate: 70 P: 0 ME: 158 QRS: -19 QRSD: 100 T: 34 QT: 406 QTc: 441 Interpretive Statements SINUS RHYTHM LEFTWARD AXIS NO SPECIFIC ECG ABNORMALITIES RI6.01 No previous ECG available for comparison Electronically Signed On 02-07-2019 12:03:33 CDT by Eliazar Luna
== END 2019-02-02 08:38 | disposition home or self-care (01) ==
LOC: ER 04:59
DX: K80.70 Calculus of gallbladder and bile duct without cholecystitis without obstruction (principal); M46.1 Sacroiliitis, not elsewhere classified; K42.9 Umbilical hernia without obstruction or gangrene; Z98.890 Other specified postprocedural states
CPT/HCPCS: 36415; 74177; 80048; 80061; 80076; 80307; 81001; 81025; 82150; 82550; 83690; 84484; 85025; 85610; 85730; 87086; 93005; 96374; 96375; 99285; J2405; J3490; J7120; Q9966; Q9967

== ENCOUNTER 2022-01-16 18:51 | Emergency (ER) | payer BC, MEDICAID, OTHER ==
[~2022-01-16] VITALS: Ht 149.9 cm; Wt 81.2 kg
[~2022-01-16 18:51] MED LIST: HYDR-3165 PO
[2022-01-16 19:18] VITALS: BP 128/86
--- NOTE | 2022-01-16 19:19 | PHYS DOC ---
Past History Past Medical History: Anemia, GERD Past Surgical History: Alcohol Use: None Drug Use: None Adult General Chief Complaint Chief Complaint: FEVER HPI HPI Patient is a 36-year-old female who presents with a chief complaint of fevers at home, and 4 episodes of nonbloody nonbilious emesis and some soft stool. All of this started today. States she took a Zofran this morning which did seem to help and she has not vomited in a couple hours. Denies any recent travels, traumas, rash, chest pain, shortness of breath, cough, abdominal pain, dysuria, hematuria, blood in the stool. Denies any known ill contacts. Review of Systems Review of Systems Review of systems otherwise unremarkable except noted in HPI Allergies Allergies Allergies Coded Allergies Type Severity Reaction Last Updated Verified No Known Drug Allergies 07/10/18 No Physical Exam Physical Exam Constitutional: Well developed, well nourished, no acute distress, non-toxic appearance. [] HENT: Normocephalic, atraumatic, no posterior oropharyngeal erythema, oropharynx moist, no oral exudates, nose normal. [] Eyes: conjunctiva normal, no discharge. [] Neck: Normal range of motion, no tenderness, supple, no stridor. [] Cardiovascular: Sinus tachycardia Lungs & Thorax: Bilateral breath sounds clear to auscultation [] Abdomen: soft, no tenderness, no masses, no pulsatile masses. [] Skin: Warm, dry, no erythema, no rash. [] Extremities: No tenderness, no cyanosis, no clubbing, ROM intact, no edema. [] Neurologic: Alert and oriented X 3, normal motor function, normal sensory function, able to sit, stand and walk without issue no focal deficits noted. [] Psychologic: Affect normal, judgement normal, mood normal. [] EKG EKG [] Radiology/Procedures Radiology/Procedures [] Heart Score C/O Chest Pain: No Risk Factors: Risk Factors: DM, Current or recent (<one month) smoker, HTN, HLP, family history of CAD, obesity. Risk Scores: Risk Factors: DM, Current or recent (<one month) smoker, HTN, HLP, family history of CAD, obesity. Course & Med Decision Making Course & Med Decision Making Patient is a 36-year-old female who presents with cold/flu/COVID symptoms Vital signs notable for borderline tachycardia. Physical exam noted above. Given medications for symptom control. negative. Urinalysis nonconcerning. Discussed all findings with patient. Given nausea medicine for home. Discussed symptom management at home as well as diet and hydration. Advised to follow-up as soon as possible with primary care physician. Gave return precautions to the ED. Patient grateful, verbalized understanding and agreed with plan of discharge. [] Dragon Disclaimer Dragon Disclaimer This electronic medical record was generated, in whole or in part, using a voice recognition dictation system. Departure Departure: Impression: Primary Impression: Nausea vomiting and diarrhea Disposition: HOME / SELF CARE / HOMELESS Condition: STABLE Referrals: CHARMAINE MANCUSO (PCP) Patient Instructions: Diarrhea, Nausea and Vomiting Additional Instructions: Thank you for coming into the emergency department tonight and allowing us to take care of you. Please read all attached information carefully go over things we discussed. Please take your nausea medicine as prescribed and as needed. Over the next couple of days please eat a light clear diet and nothing heavy as we discussed. Please be sure to drink plenty of fluids. Please follow-up as soon as you can with your primary care physician update on your ED visit and set up a follow-up. Please come back with new or concerning symptoms as discussed. JAIMEE PONCE MD Jan 16, 2022 19:19
[2022-01-16] MEDS ORDERED: diphenhydrAMINE HCL 25 MG CAPSULE PO ONE (20:00)
[2022-01-16] MEDS ORDERED: METOCLOPRAMIDE HCL 10 MG/2 ML VIAL. IM ONE (20:00)
[2022-01-16 20:29] LABS: CLARITY,URINE CLOUDY; COLOR,URINE YELLOW; GLUCOSE,URINE NEG (NEG)
[2022-01-16 20:30] LABS: BACTERIA,URINE 0 /HPF (0-FEW); NITRITE,URINE NEG (NEG); RBC,URINE OCC /HPF (0-2); WBC,URINE 0 /HPF (0-4)
[2022-01-16 20:31] LABS: SQUAMOUS EPITHELIAL CELL,UR FEW /LPF
[2022-01-16] MEDS ORDERED: ONDANSETRON 4MG ODT 4TABLET STARTPACK. PO ONE (21:00)
== END 2022-01-16 20:58 | disposition home or self-care (01) ==
LOC: ER 18:51
DX: R11.2 Nausea with vomiting, unspecified (principal); R19.7 Diarrhea, unspecified; R50.9 Fever, unspecified; K21.9 Gastro-esophageal reflux disease without esophagitis; Z86.2 Personal history of diseases of the blood and blood-forming organs and certain disorders involving the immune mechanism; Z98.890 Other specified postprocedural states
CPT/HCPCS: 81001; 81025; 96372; 99283; J2765; Q0162; Q0163